=== PATIENT | female | born 1935 | race Caucasian/White ===

== ENCOUNTER → 2016-09-27 | Outpatient (CLI) | payer MEDICARE ==
[2016-09-27 14:25] LABS: ALT 33 U/L (9-52); AST 28 U/L (14-36); Alkaline Phosphatase 73 U/L (38-126); Anion Gap 14 mmol/L; Blood Urea Nitrogen 21 mg/dL (7-17); Calcium 9.9 mg/dL (8.4-10.2); Carbon Dioxide 28 mmol/L (22-30); Chloride 100 mmol/L (98-107); Cholesterol 182 mg/dL (<200); Glucose 85 mg/dL (74-99); HDL Cholesterol 59 mg/dL (40-60); Non-African American GFR(MDRD) >60 (>60 ml/min/1.73 sqM); Potassium 4.2 mmol/L (3.5-5.1); Sodium 142 mmol/L (137-145); Total Bilirubin 0.7 mg/dL (0.2-1.3); Total Protein 7.9 g/dL (6.3-8.2); Triglycerides 153 mg/dL (<150)
[2016-09-27 15:12] LABS: Vitamin B12 286 pg/mL
[2016-09-27 22:51] LABS: Hemoglobin A1C 5.7 % (4.2-6.1)
== END | disposition home or self-care (01) ==
LOC: LABWHC1 13:30
PROVIDERS: ATTEND Internal Medicine
DX: E03.9 Hypothyroidism, unspecified (principal); G62.9 Polyneuropathy, unspecified; R13.10 Dysphagia, unspecified
CPT/HCPCS: 36415; 80053; 80061; 82306; 82607; 83036; 84439; 84443; 84481; 85652

== ENCOUNTER → 2018-01-13 | Outpatient (CLI) | payer MEDICARE ==
[2018-01-13 18:53] LABS: Hemoglobin A1C 5.6 % (4.0-6.0)
[2018-01-13 19:18] LABS: Vitamin D 25 Hydroxy 29.5 ng/mL (30.0-100.0)
[2018-01-13 19:47] LABS: Albumin 4.4 g/dL (3.80-4.90); Calcium 9.6 mg/dL (8.7-10.3); Globulin 2.2 g/dL (2.1-3.7); LDL Cholesterol,Calculated 84.2 mg/dL (0.0-131.0); Potassium 3.7 mmol/L (3.5-5.5); Total Bilirubin 0.9 mg/dL (0.2-1.2); Total Protein 6.6 g/dL (6.2-8.2); VLDL Calculation 19.8 mg/dL (5.00-40.00)
[2018-01-13 19:54] LABS: T4, Free (Free Thyroxine) 1.4 ng/dL (0.80-1.80)
== END | disposition home or self-care (01) ==
LOC: LABWHC1 09:05
PROVIDERS: ATTEND Internal Medicine
DX: E78.5 Hyperlipidemia, unspecified (principal); I10 Essential (primary) hypertension; E03.9 Hypothyroidism, unspecified; E55.9 Vitamin D deficiency, unspecified; E53.8 Deficiency of other specified B group vitamins
CPT/HCPCS: 36415; 80053; 80061; 82306; 82607; 83036; 84439; 84443

== ENCOUNTER → 2018-02-22 | Outpatient (CLI) | payer MEDICARE ==
--- NOTE | 2018-02-22 10:07 | MM ---
Reason for exam: additional evaluation requested from prior study. Last mammogram was performed 1 year ago. History: Patient is postmenopausal and has history of breast cancer at age 73. Mastectomy of the left breast, February 03, 2009. Malignant US left guided VAD of the left breast, January 17, 2009. Excisional biopsy of the left breast. 2 excisional biopsies of the right breast. Physical Findings: Nurse did not find any significant physical abnormalities on exam. MG 3D Diag Mammo W/Cad RT CC and MLO view(s) were taken of the right breast. Prior study comparison: February 21, 2017, right breast MG 3d diag mammo w/cad RT. February 19, 2016, right breast MG 3d diag mammo w/cad RT. There are scattered fibroglandular densities. Stable benign calcifications. There is chronic nodularity in the right breast. No significant new findings when compared with previous films. These results were verbally communicated with the patient and result sheet given to the patient on 02/22/18. ASSESSMENT: Benign, BI-RAD 2 RECOMMENDATION: Follow-up diagnostic mammogram of the right breast in 1 year.
== END | disposition home or self-care (01) ==
LOC: RADMAMWWP 08:49
PROVIDERS: ATTEND Internal Medicine
DX: Z08 Encounter for follow-up examination after completed treatment for malignant neoplasm (principal); Z85.3 Personal history of malignant neoplasm of breast
CPT/HCPCS: 77065; G0279; 77061

== ENCOUNTER → 2018-11-08 | Outpatient (CLI) | payer MEDICARE ==
[2018-11-08 17:46] LABS: African American GFR (CKD) 94.8 (60.0-200.0); Albumin 4.2 g/dL (3.80-4.90); Anion Gap 8.7 mmol/L (4.00-12.00); Bilirubin, Conjugated 0.2 mg/dL (0.20-0.40); Bilirubin,Unconjugated 0.5 mg/dL; Carbon Dioxide 31.3 mmol/L (21.6-31.8); Chol/HDL Ratio 2.74; Globulin 2.1 g/dL (1.6-3.3); LDL Cholesterol,Calculated 76.2 mg/dL (0.0-131.0); Non-African American GFR(CKD) 81.8 (60.0-200.0); Potassium 4.3 mmol/L (3.5-5.5); Total Bilirubin 0.7 mg/dL (0.2-1.2); Total Protein 6.3 g/dL (6.2-8.2); VLDL Calculation 24.8 mg/dL (5.00-40.00)
[2018-11-08 17:54] LABS: T4, Free (Free Thyroxine) 1.2 ng/dL (0.80-1.80)
== END | disposition home or self-care (01) ==
LOC: LABWHC1 08:30
PROVIDERS: ATTEND Internal Medicine
DX: I10 Essential (primary) hypertension (principal); E03.9 Hypothyroidism, unspecified; E78.5 Hyperlipidemia, unspecified; E55.9 Vitamin D deficiency, unspecified
CPT/HCPCS: 36415; 80051; 80061; 80076; 82565; 82947; 84439; 84443; 84481; 84520

== ENCOUNTER → 2019-02-23 | Outpatient (CLI) | payer MEDICARE ==
--- NOTE | 2019-02-23 12:10 | MM ---
Reason for exam: additional evaluation requested from prior study. Last mammogram was performed 1 year ago. History: Patient is postmenopausal and has history of breast cancer at age 73. Mastectomy of the left breast, February 03, 2009. Malignant US left guided VAD of the left breast, January 17, 2009. Excisional biopsy of the left breast. 2 excisional biopsies of the right breast. Physical Findings: Nurse did not find any significant physical abnormalities on exam. MG 3D Diag Mammo W/Cad RT CC and MLO view(s) were taken of the right breast. Prior study comparison: February 22, 2018, right breast MG 3d diag mammo w/cad RT. February 21, 2017, right breast MG 3d diag mammo w/cad RT. There are scattered fibroglandular densities. There is a stable right upper outer quadrant low density middle depth mass back to 2013. Benign appearing calcifications in the right breast. These results were verbally communicated with the patient and result sheet given to the patient on 02/23/19. ASSESSMENT: Benign, BI-RAD 2 RECOMMENDATION: Follow-up diagnostic mammogram of the right breast in 1 year.
== END ==
LOC: RADMAMWWP 10:46
PROVIDERS: ATTEND Internal Medicine Hematology & Oncology
DX: Z08 Encounter for follow-up examination after completed treatment for malignant neoplasm (principal); Z85.3 Personal history of malignant neoplasm of breast
CPT/HCPCS: 77065; G0279; 77061

== ENCOUNTER → 2019-12-25 | Outpatient (CLI) | payer MEDICARE ==
[2019-12-25 16:03] LABS: African American GFR (CKD) 98.4 (60.0-200.0); Albumin 4.2 g/dL (3.80-4.90); Albumin/Globulin Ratio 1.75 (1.60-3.17); Anion Gap 8.8 mmol/L (4.00-12.00); Bilirubin, Conjugated 0.4 mg/dL (0.20-0.40); Bilirubin,Unconjugated 0.8 mg/dL; Carbon Dioxide 32.2 mmol/L (21.6-31.8); Chol/HDL Ratio 2.8; Globulin 2.4 g/dL (1.6-3.3); LDL Cholesterol,Calculated 88.2 mg/dL (0.0-131.0); Non-African American GFR(CKD) 84.9 (60.0-200.0); Potassium 4.4 mmol/L (3.5-5.5); Total Bilirubin 1.2 mg/dL (0.3-1.2); Total Protein 6.6 g/dL (6.2-8.2); VLDL Calculation 21.8 mg/dL (5.00-40.00)
[2019-12-25 16:11] LABS: T4, Free (Free Thyroxine) 1.4 ng/dL (0.80-1.80)
== END | disposition home or self-care (01) ==
LOC: LABWHC1 08:58
PROVIDERS: ATTEND Internal Medicine
DX: I10 Essential (primary) hypertension (principal); E55.9 Vitamin D deficiency, unspecified; E75.5 Other lipid storage disorders; E03.9 Hypothyroidism, unspecified
CPT/HCPCS: 36415; 80051; 80061; 80076; 82306; 82565; 82947; 84439; 84443; 84481; 84520

== ENCOUNTER → 2020-02-25 | Outpatient (CLI) | payer MEDICARE ==
--- NOTE | 2020-02-25 10:48 | MM ---
Reason for exam: additional evaluation requested from prior study. Last mammogram was performed 1 year ago. History: Patient is postmenopausal and has history of breast cancer at age 73. Mastectomy of the left breast, February 03, 2009. Malignant US left guided VAD of the left breast, January 17, 2009. Excisional biopsy of the left breast. 2 excisional biopsies of the right breast. Physical Findings: Nurse did not find any significant physical abnormalities on exam. MG Diagnostic Mammo RT w CAD CC and MLO view(s) were taken of the right breast. Prior study comparison: February 23, 2019, right breast MG 3d diag mammo w/cad RT. February 22, 2018, right breast MG 3d diag mammo w/cad RT. There are scattered fibroglandular densities. There are benign appearing round calcifications in the right breast. There is no discrete abnormality. These results were verbally communicated with the patient and result sheet given to the patient on 02/25/20. ASSESSMENT: Benign, BI-RAD 2 RECOMMENDATION: Routine screening mammogram of the right breast in 1 year.
== END | disposition home or self-care (01) ==
LOC: RADMAMWWP 09:53
PROVIDERS: ATTEND Internal Medicine Hematology & Oncology
DX: Z08 Encounter for follow-up examination after completed treatment for malignant neoplasm (principal); Z85.3 Personal history of malignant neoplasm of breast
CPT/HCPCS: 77065

== ENCOUNTER → 2021-02-26 | Outpatient (CLI) | payer MEDICARE ==
--- NOTE | 2021-02-27 13:42 | MM ---
Reason for exam: screening (asymptomatic). Last mammogram was performed 1 year ago. History: Patient is postmenopausal and has history of breast cancer at age 73. Mastectomy of the left breast, February 03, 2009. Malignant US left guided VAD of the left breast, January 17, 2009. Excisional biopsy of the left breast. 2 excisional biopsies of the right breast. Physical Findings: A clinical breast exam by your physician is recommended on an annual basis and results should be correlated with mammographic findings. MG 3D Scr Mari Unilateral W/Cad CC and MLO view(s) were taken of the right breast. Prior study comparison: February 25, 2020, right breast MG diagnostic mammo RT w CAD. February 23, 2019, right breast MG 3d diag mammo w/cad RT. There are scattered fibroglandular densities. Stable benign calcifications. There is no discrete abnormality. No significant changes when compared with prior studies. ASSESSMENT: Negative, BI-RAD 1 RECOMMENDATION: Routine screening mammogram of the right breast.
== END | disposition home or self-care (01) ==
LOC: RADMAMWWP 09:23
PROVIDERS: ATTEND Internal Medicine Hematology & Oncology
DX: Z12.31 Encounter for screening mammogram for malignant neoplasm of breast (principal); Z78.0 Asymptomatic menopausal state; Z85.3 Personal history of malignant neoplasm of breast; Z90.12 Acquired absence of left breast and nipple
CPT/HCPCS: 77067

== ENCOUNTER → 2021-06-02 | Outpatient (CLI) | payer MEDICARE ==
[2021-06-02 22:36] LABS: Chol/HDL Ratio 2.87 Ratio; LDL Cholesterol,Calculated 84.1 mg/dL (0.0-131.0)
[2021-06-02 22:42] LABS: ALT 19 U/L (8-44); AST 58 U/L (13-35); African American GFR (CKD) 82.1 (60.0-200.0); Albumin 4.5 g/dL (3.8-4.9); Albumin/Globulin Ratio 1.36 (1.60-3.17); Alkaline Phosphatase 50 U/L (41-126); BUN/Creat Ratio 22.97 Ratio (12.00-20.00); Blood Urea Nitrogen 17.8 mg/dL (9.0-27.0); Calcium 9.8 mg/dL (8.7-10.3); Chloride 96 mmol/L (96-109); Globulin 3.3 g/dL (1.6-3.3); Glucose 80 mg/dL (70-110); Non-African American GFR(CKD) 70.9 (60.0-200.0); Potassium 5.1 mmol/L (3.5-5.5); Sodium 137 mmol/L (135-145); Total Protein 7.7 g/dL (6.2-8.2)
== END | disposition home or self-care (01) ==
LOC: LABWHC1 08:54
PROVIDERS: ATTEND Internal Medicine
DX: I10 Essential (primary) hypertension (principal); E78.5 Hyperlipidemia, unspecified; E03.9 Hypothyroidism, unspecified; R26.81 Unsteadiness on feet; R94.5 Abnormal results of liver function studies
CPT/HCPCS: 36415; 80053; 80061; 80074; 82607; 84439; 84443

== ENCOUNTER → 2021-06-03 | Outpatient (CLI) | payer MEDICARE ==
[2021-06-03 18:53] LABS: HCT 47.2 % (37.2-46.3); HGB 14.8 g/dL (12.0-15.0); MCH 29.1 pg (27.0-32.0); MCHC 31.4 g/dL (32.0-37.0); MCV 92.7 fL (80.0-97.0); Mean Platelet Volume 12.4 fL (9.5-12.2); NRBC Per 100 WBC 0 /100 WBCS (0.0-0.0); Platelet Count 233 X 10*3/uL (140-440); RBC 5.09 X 10*6/uL (4.10-5.20); RDW 13.9 % (11.5-14.5); WBC 8.93 X 10*3/uL (4.50-10.00)
== END | disposition home or self-care (01) ==
LOC: LABWHC1 08:58
PROVIDERS: ATTEND Internal Medicine
DX: I10 Essential (primary) hypertension (principal); E78.5 Hyperlipidemia, unspecified; E03.9 Hypothyroidism, unspecified; R26.81 Unsteadiness on feet
CPT/HCPCS: 36415; 85027

== ENCOUNTER → 2021-12-08 | Outpatient (CLI) | payer MEDICARE ==
[2021-12-08 16:00] LABS: Chol/HDL Ratio 2.94 Ratio; LDL Cholesterol,Calculated 92.4 mg/dL (0.0-131.0)
[2021-12-08 16:24] LABS: ALT 17 U/L (8-44); AST 31 U/L (13-35); Albumin 4.5 g/dL (3.8-4.9); Alkaline Phosphatase 63 U/L (41-126); Bilirubin, Conjugated 0.21 mg/dL (0.20-0.40); Globulin 2.6 g/dL (1.6-3.3); Total Protein 7.1 g/dL (6.2-8.2)
== END | disposition home or self-care (01) ==
LOC: LABWHC1 08:59
PROVIDERS: ATTEND Internal Medicine
DX: E03.9 Hypothyroidism, unspecified (principal); E78.5 Hyperlipidemia, unspecified; E55.9 Vitamin D deficiency, unspecified
CPT/HCPCS: 36415; 80061; 80076; 82306; 84439; 84443; 84481

== ENCOUNTER → 2022-03-01 | Outpatient (CLI) | payer MEDICARE ==
--- NOTE | 2022-03-02 08:25 | MM ---
Reason for Exam: Screening (asymptomatic). Last screening mammogram was performed 12 month(s) ago. Patient History: Menarche at age 14. First Full-Term at age 27. Left ovary removed at age 42. Right ovary removed at age 42. Hysterectomy at age 42. Postmenopausal. Breast cancer, left, age 73. 02/03/2009, Mastectomy on the Left side. Excisional Biopsy on the Right side. Excisional Biopsy on the Right side. Excisional Biopsy on the Left side. 01/17/2009, Malignant Core Biopsy on the left side. Prior Study Comparison: 02/23/2019 Right Diagnostic Mammogram, [facility]. 02/25/2020 Right Diagnostic Mammogram, [facility]. 02/26/2021 Bilateral Screening Mammogram, [facility]. Tissue Density: Right: The breast tissue is heterogeneously dense. This may lower the sensitivity of mammography. Findings: There is no suspicious group of microcalcifications or new suspicious mass in either breast. Overall Assessment: Benign, BI-RAD 2 Management: Screening Mammogram of both breasts in 1 year. A clinical breast exam by your physician is recommended on an annual basis and results should be correlated with mammographic findings. Electronically signed and approved by: Joss Amato M.D. Radiologis
== END | disposition home or self-care (01) ==
LOC: RADMAMWWP 11:19
PROVIDERS: ATTEND Internal Medicine Hematology & Oncology
DX: Z12.31 Encounter for screening mammogram for malignant neoplasm of breast (principal); Z78.0 Asymptomatic menopausal state; Z98.890 Other specified postprocedural states
CPT/HCPCS: 77067

== ENCOUNTER → 2023-03-02 | Outpatient (CLI) | payer MEDICARE ==
--- NOTE | 2023-03-03 09:15 | MM ---
Reason for Exam: Hx of breast cancer, mastectomy. Last screening mammogram was performed 12 month(s) ago. Patient History: Menarche at age 14. First Full-Term at age 27. Left ovary removed at age 42. Right ovary removed at age 42. Hysterectomy at age 42. Postmenopausal. Breast cancer, left, age 73. Mastectomy on the Left side. Mastectomy on the Left side. 02/03/2009, Mastectomy on the Left side. Excisional Biopsy on the Right side. Excisional Biopsy on the Right side. Excisional Biopsy on the Left side. 01/17/2009, Malignant Core Biopsy on the left side. Prior Study Comparison: 02/25/2020 Right Diagnostic Mammogram, [facility]. 02/26/2021 Bilateral Screening Mammogram, [facility]. 03/01/2022 Right MG 3D scr fidel unilateral w/cad., [facility]. Tissue Density: Right: There are scattered fibroglandular densities. Findings: There is no suspicious group of microcalcifications or new suspicious mass. Overall Assessment: Negative, BI-RAD 1 Management: Screening Mammogram of both breasts in [address] [facility] will attempt to contact patient to return for supplemental views and ultrasound if indicated. Patient should continue monthly self-breast exams. A clinical breast exam by your physician is recommended on an annual basis. This exam should not preclude additional follow-up of suspicious palpable abnormalities. Note on Ykara scores and lifetime risk: 1. A Kyara score greater than 3% is considered moderate risk. If this is the case, consider specialist referral to assess eligibility for a risk reducing agent. 2. If overall lifetime risk for the development of breast cancer is 20% or higher, the patient may qualify for future screening with alternating mammogram and breast MRI. Electronically signed and approved by: Yonas Whelan DO
== END | disposition home or self-care (01) ==
LOC: RADMAMWWP 10:42
PROVIDERS: ATTEND Internal Medicine Hematology & Oncology
DX: Z12.31 Encounter for screening mammogram for malignant neoplasm of breast (principal); Z78.0 Asymptomatic menopausal state; Z85.3 Personal history of malignant neoplasm of breast
CPT/HCPCS: 77067

== ENCOUNTER → 2023-08-29 | Outpatient (CLI) | payer MEDICARE ==
[2023-08-29 15:29] LABS: Basophils # (A) 0.07 X 10*3/uL (0.00-0.10); Basophils % (A) 0.7 %; Eosinophils # (A) 0.62 X 10*3/uL (0.04-0.35); Eosinophils % (A) 6.5 %; HCT 46.9 % (37.2-46.3); HGB 14.5 g/dL (12.0-15.0); Lymphocytes # (A) 2.28 X 10*3/uL (0.90-5.00); Lymphocytes % (A) 23.8 %; MCH 29.4 pg (27.0-32.0); MCHC 30.9 g/dL (32.0-37.0); MCV 94.9 FL (80.0-97.0); Mean Platelet Volume 11.9 FL (9.5-12.2); Monocytes # (A) 0.52 X 10*3/uL (0.20-1.00); Monocytes % (A) 5.4 %; NRBC Per 100 WBC 0 X 10*3/uL (0.00-0.01); Neutrophils # (A) 6.05 X 10*3/uL (1.80-7.70); Neutrophils % (A) 63.4 %; Platelet Count 250 X 10*3/uL (140-440); RBC 4.94 X 10*6/uL (4.10-5.20); WBC 9.56 X 10*3/uL (4.50-10.00)
[2023-08-29 16:18] LABS: BUN/Creat Ratio 22.71 Ratio (12.00-20.00); Blood Urea Nitrogen 15.9 mg/dL (9.0-27.0); Carbon Dioxide 30.6 mmol/L (21.6-31.8); Chloride 97 mmol/L (96-109); Glucose 96 mg/dL (70-110); LDL Cholesterol,Calculated 77.5 mg/dL (0.0-131.0); Potassium 3.8 mmol/L (3.5-5.5); Sodium 139 mmol/L (135-145)
[2023-08-29 16:19] LABS: ALT 14 U/L (8-44); AST 28 U/L (13-35); Albumin 4.5 g/dL (3.8-4.9); Albumin/Globulin Ratio 1.67 Ratio (1.60-3.17); Alkaline Phosphatase 64 U/L (41-126); Calcium 10.1 mg/dL (8.7-10.3); Globulin 2.7 g/dL (1.6-3.3); Total Bilirubin 0.8 mg/dL (0.3-1.2); Total Protein 7.2 g/dL (6.2-8.2)
== END | disposition home or self-care (01) ==
LOC: LABWHC1 08:49
PROVIDERS: ATTEND Family Medicine
DX: I10 Essential (primary) hypertension (principal); E03.9 Hypothyroidism, unspecified; E78.5 Hyperlipidemia, unspecified; E55.9 Vitamin D deficiency, unspecified
CPT/HCPCS: 36415; 80053; 80061; 82306; 84443; 85025

== ENCOUNTER → 2024-06-27 | Outpatient (CLI) | payer MEDICARE ==
--- NOTE | 2024-06-27 13:14 | MM ---
Reason for Exam: Hx of breast cancer, mastectomy. Last mammogram was performed 1 year(s) and 4 month(s) ago. Patient History: Menarche at age 14. First Full-Term at age 27. Left ovary removed at age 42. Right ovary removed at age 42. Hysterectomy at age 42. Postmenopausal. Breast cancer, left, age 73. Mastectomy on the Left side. Mastectomy on the Left side. 02/03/2009, Mastectomy on the Left side. Excisional Biopsy on the Right side. Excisional Biopsy on the Right side. Excisional Biopsy on the Left side. 01/17/2009, Malignant Core Biopsy on the left side. Prior Study Comparison: 02/26/2021 Bilateral Screening Mammogram, [facility]. 03/01/2022 Right MG 3D scr fidel unilateral w/cad., [facility]. 03/02/2023 Right MG 3D scr fidel unilateral w/cad., [facility]. Tissue Density: There are scattered areas of fibroglandular density. Findings: Analyzed By CAD. There is no suspicious group of microcalcifications or new suspicious mass in either breast. Overall Assessment: Negative, BI-RAD 1 Management: Screening Mammogram of the right breast in 1 year. Patient should continue monthly self-breast exams. A clinical breast exam by your physician is recommended on an annual basis. This exam should not preclude additional follow-up of suspicious palpable abnormalities. [facility], , 06/27/2024 1:11 PM. Electronically signed and approved by: Lupe Goodman M.D. Radiologist
== END | disposition home or self-care (01) ==
LOC: RADMAMWWP 09:27
PROVIDERS: ATTEND Family Medicine
DX: Z12.31 Encounter for screening mammogram for malignant neoplasm of breast (principal); R92.323 Mammographic fibroglandular density, bilateral breasts; Z78.0 Asymptomatic menopausal state; Z85.3 Personal history of malignant neoplasm of breast
CPT/HCPCS: 77067